=== PATIENT | female | born 1990 | race American Indian/Alaskan Native ===

== ENCOUNTER 2018-09-28 16:20 | Emergency (ER) | payer MEDICAID, OTHER ==
--- NOTE | 2018-09-28 16:29 | Emergency Department Report ---
Chief Complaint: Sore Throat Stated Complaint: SORE THROAT Time Seen by Provider: 09/28/18 16:25 - HPI History of Present Illness: SORE THROAT CONTROLLING SECRETIONS ABC INTACT PURULENT DRAINAGE L TONSIL RAPID STREP SENT RO ABSCESS MSE COMPLETED - Exam Vital Signs: Vital Signs 09/28/18 16:26 Temperature 99.9 F H Pulse Rate 109 H Respiratory 18 Rate Blood Pressure 113/80 O2 Sat by Pulse 100 Oximetry MSE screening note: Focused history and physical exam performed. Due to findings the following was ordered: ED Disposition for MSE Condition: Stable
[2018-09-28] MEDS ORDERED: DECADRON IM ONE (16:41)
[2018-09-28] MEDS ORDERED: BICILLIN L-A IM STA (17:43)
[2018-09-28] MEDS ORDERED: TYLENOL/CODEINE PO STA (17:43)
--- NOTE | 2018-09-28 18:13 | Emergency Department Report ---
ED ENT HPI - General Chief complaint: Sore Throat Stated complaint: SORE THROAT Time Seen by Provider: 09/28/18 16:25 Source: patient Mode of arrival: Ambulatory Limitations: No Limitations - History of Present Illness MD complaint: sore throat -: Gradual, days(s) (2) Location: throat Severity: mild, moderate Quality: aching, dull Consistency: constant Improves with: none Worsens with: swallowing Associated Symptoms: sore throat - Related Data Previous Rx's Medication Instructions Recorded Last Taken Type Ibuprofen [Motrin] 600 mg PO Q8H PRN #40 tablet 07/17/15 Unknown Rx Sulfamethoxazole/Trimethoprim 1 each PO BID #20 tablet 07/17/15 Unknown Rx [Bactrim DS TAB] Lidocaine Viscous 2% 5 ml MM Q3H PRN #120 udc 09/28/18 Unknown Rx Allergies Allergy/AdvReac Type Severity Reaction Status Date / Time No Known Allergies Allergy Unverified 07/17/15 15:13 ED Dental HPI - General Chief complaint: Sore Throat Stated complaint: SORE THROAT Time Seen by Provider: 09/28/18 16:25 Source: patient Mode of arrival: Ambulatory Limitations: No Limitations - Related Data Previous Rx's Medication Instructions Recorded Last Taken Type Ibuprofen [Motrin] 600 mg PO Q8H PRN #40 tablet 07/17/15 Unknown Rx Sulfamethoxazole/Trimethoprim 1 each PO BID #20 tablet 07/17/15 Unknown Rx [Bactrim DS TAB] Lidocaine Viscous 2% 5 ml MM Q3H PRN #120 udc 09/28/18 Unknown Rx Allergies Allergy/AdvReac Type Severity Reaction Status Date / Time No Known Allergies Allergy Unverified 07/17/15 15:13 ED Review of Systems ROS: Stated complaint: SORE THROAT Other details as noted in HPI Constitutional: denies: chills, fever Eyes: denies: eye pain, eye discharge, vision change ENT: throat pain. denies: ear pain Respiratory: denies: cough, shortness of breath, wheezing Cardiovascular: denies: chest pain, palpitations Endocrine: no symptoms reported Gastrointestinal: denies: abdominal pain, nausea, diarrhea Genitourinary: denies: urgency, dysuria, discharge Musculoskeletal: denies: back pain, joint swelling, arthralgia Skin: denies: rash, lesions Neurological: denies: headache, weakness, paresthesias Psychiatric: denies: anxiety, depression Hematological/Lymphatic: denies: easy bleeding, easy bruising ED Past Medical Hx - Past Medical History Previous Medical History?: No Additional medical history: right pinky fracture - Surgical History Past Surgical History?: No - Social History Smoking Status: Current Every Day Smoker Substance Use Type: None - Medications Home Medications: Home Medications Medication Instructions Recorded Confirmed Last Taken Type Ibuprofen [Motrin] 600 mg PO Q8H PRN #40 tablet 07/17/15 Unknown Rx Sulfamethoxazole/Trimethoprim 1 each PO BID #20 tablet 07/17/15 Unknown Rx [Bactrim DS TAB] Lidocaine Viscous 2% 5 ml MM Q3H PRN #120 udc 09/28/18 Unknown Rx ED Physical Exam - General Limitations: No Limitations General appearance: alert, in no apparent distress - Head Head exam: Present: atraumatic, normocephalic - Eye Eye exam: Present: normal appearance, PERRL, EOMI - ENT ENT exam: Present: mucous membranes moist, other (airway patent tongue and uvula midline and normal size. pharynx red wtih mild exudate. no drooling. normal voice) - Neck Neck exam: Present: normal inspection - Respiratory Respiratory exam: Present: normal lung sounds bilaterally. Absent: respiratory distress - Cardiovascular Cardiovascular Exam: Present: regular rate, normal rhythm. Absent: systolic murmur, diastolic murmur, rubs, gallop - GI/Abdominal GI/Abdominal exam: Present: soft, normal bowel sounds - Extremities Exam Extremities exam: Present: normal inspection - Back Exam Back exam: Present: normal inspection - Neurological Exam Neurological exam: Present: alert, oriented X3 - Psychiatric Psychiatric exam: Present: normal affect, normal mood - Skin Skin exam: Present: warm, dry, intact, normal color. Absent: rash ED Course Vital Signs 09/28/18 16:26 Temperature 99.9 F H Pulse Rate 109 H Respiratory 18 Rate Blood Pressure 113/80 O2 Sat by Pulse 100 Oximetry ED Medical Decision Making - Differential Diagnosis ANUG, strep, mono, malingnancy, quinsy Critical care attestation.: If time is entered above; I have spent that time in minutes in the direct care of this critically ill patient, excluding procedure time. ED Disposition Clinical Impression: Exudative pharyngitis Disposition: DC- TO HOME OR SELFCARE Is pt being admited?: No Does the pt Need Aspirin: No Condition: Stable Instructions: Pharyngitis (ED) Referrals: VEENA THAKKAR MD [Primary Care Provider] - 3-5 Days
[2018-09-28 21:20] VITALS: BP 113/80
== END 2018-09-28 18:56 | disposition home or self-care (01) ==
LOC: ED 16:20
DX: J02.9 Acute pharyngitis, unspecified (principal); F17.200 Nicotine dependence, unspecified, uncomplicated
CPT/HCPCS: 87430; 96372; 99283; J0561; J1100

== ENCOUNTER 2019-07-28 22:40 | Emergency (ER) | payer MEDICAID, OTHER ==
[2019-07-28 23:27] VITALS: BP 131/80
--- NOTE | 2019-07-29 01:58 | Emergency Department Report ---
- General Chief Complaint: Upper Respiratory Infection Stated Complaint: FLU SYMPTOMS W/ LT EAR PAIN Time Seen by Provider: 07/29/19 01:19 Source: patient Mode of arrival: Ambulatory Limitations: No Limitations - History of Present Illness Initial Comments: Patient is a 28-year-old female presents emergency room with complaints of left- sided ear pain that began 3 days ago. She states beginning a week ago she began to have flulike symptoms. She states that she has had dry cough, rhinorrhea, body aches, sore throat, subjective fever. She denies any chest pain, shortness of breath, nausea, vomiting, diarrhea, productive cough. She denies any past medical history. She denies any allergies to medications. - Related Data Previous Rx's Medication Instructions Recorded Last Taken Type Ibuprofen [Motrin] 600 mg PO Q8H PRN #40 tablet 07/17/15 Unknown Rx Sulfamethoxazole/Trimethoprim 1 each PO BID #20 tablet 07/17/15 Unknown Rx [Bactrim DS TAB] Lidocaine Viscous 2% 5 ml MM Q3H PRN #120 udc 09/28/18 Unknown Rx Amoxicillin [Amoxicillin TAB] 875 mg PO BID 10 Days #20 tablet 07/29/19 Unknown Rx Allergies Allergy/AdvReac Type Severity Reaction Status Date / Time No Known Allergies Allergy Unverified 07/17/15 15:13 ED Review of Systems ROS: Stated complaint: FLU SYMPTOMS W/ LT EAR PAIN Other details as noted in HPI Comment: All other systems reviewed and negative ED Past Medical Hx - Past Medical History Previous Medical History?: Yes Additional medical history: right pinky fracture - Surgical History Past Surgical History?: No - Social History Smoking Status: Current Every Day Smoker Substance Use Type: None - Medications Home Medications: Home Medications Medication Instructions Recorded Confirmed Last Taken Type Ibuprofen [Motrin] 600 mg PO Q8H PRN #40 tablet 07/17/15 Unknown Rx Sulfamethoxazole/Trimethoprim 1 each PO BID #20 tablet 07/17/15 Unknown Rx [Bactrim DS TAB] Lidocaine Viscous 2% 5 ml MM Q3H PRN #120 udc 09/28/18 Unknown Rx Amoxicillin [Amoxicillin TAB] 875 mg PO BID 10 Days #20 tablet 07/29/19 Unknown Rx ED Physical Exam - General Limitations: No Limitations General appearance: alert, in no apparent distress - Head Head exam: Present: atraumatic, normocephalic - Eye Eye exam: Present: normal appearance - ENT ENT exam: Present: normal orophraynx, mucous membranes moist, other (right TM and canal are normal, left TM is erythematous, left canal is normal ) - Respiratory Respiratory exam: Present: normal lung sounds bilaterally. Absent: respiratory distress, wheezes, rales, rhonchi, stridor, chest wall tenderness, accessory muscle use, decreased breath sounds, prolonged expiratory - Cardiovascular Cardiovascular Exam: Present: regular rate, normal rhythm, normal heart sounds. Absent: systolic murmur, diastolic murmur, rubs, gallop - Neurological Exam Neurological exam: Present: alert, oriented X3 - Psychiatric Psychiatric exam: Present: normal affect, normal mood - Skin Skin exam: Present: warm, dry, intact ED Course Vital Signs 07/28/19 07/29/19 23:26 02:10 Temperature 99.8 F H 98.7 F Pulse Rate 84 72 Respiratory 20 16 Rate Blood Pressure 131/80 O2 Sat by Pulse 100 100 Oximetry ED Medical Decision Making - Medical Decision Making Patient is a 28-year-old female presents emergency room with complaints of left- sided ear pain that began 3 days ago. She states beginning a week ago she began to have flulike symptoms. She states that she has had dry cough, rhinorrhea, body aches, sore throat, subjective fever. She denies any chest pain, shortness of breath, nausea, vomiting, diarrhea, productive cough. She denies any past medical history. She denies any allergies to medications. Initial vitals with mild low-grade temperature which improved upon ibuprofen administration. on exam right TM and canal are normal, left TM is erythematous, left canal is normal. Examination consistent with otitis media and URI. given prescription for amoxicillin. advised to please take medication as prescribed to completion. May take Mucinex or TheraFlu [id number] for cough cold symptoms. May alternate Tylenol and ibuprofen as needed for ear pain. Follow-up with a primary care doctor in the next 3 to 5 days for ear reexamination. Return to the emergency room for any new or worsening symptoms. - Differential Diagnosis influenza, strep, uri, pna, viral syndrome, otitis Critical care attestation.: If time is entered above; I have spent that time in minutes in the direct care of this critically ill patient, excluding procedure time. ED Disposition Clinical Impression: Otitis media Qualifiers: Otitis media type: suppurative Chronicity: acute Laterality: left Recurrence: non-recurrent Spontaneous tympanic membrane rupture: without spontaneous rupture Qualified Code(s): H66.002 - Acute suppurative otitis media without spontaneous rupture of ear drum, left ear URI (upper respiratory infection) Qualifiers: URI type: unspecified URI Qualified Code(s): J06.9 - Acute upper respiratory infection, unspecified Disposition: TO HOME OR SELFCARE Is pt being admited?: No Does the pt Need Aspirin: No Condition: Stable Instructions: Otitis Media (ED), Upper Respiratory Infection (ED) Additional Instructions: Please take medication as prescribed to completion. May take Mucinex or TheraFlu [id number] for cough cold symptoms. May alternate Tylenol and ibuprofen as needed for ear pain. Follow-up with a primary care doctor in the next 3 to 5 days for ear reexamination. Return to the emergency room for any new or worsening symptoms. Prescriptions: Amoxicillin [Amoxicillin TAB] 875 mg PO BID 10 Days #20 tablet Referrals: TALHA BROWNLEE MD [Staff Physician] - 3-5 Days [facility] [Outside] - 3-5 Days [facility] [Outside] - 3-5 Days Time of Disposition: 01:57 Print Language: MAORI
[2019-07-29] MEDS: IBUPROFEN 600 MG TAB PO ONE (01:59)
== END 2019-07-29 02:10 | disposition home or self-care (01) ==
LOC: ED 22:40
DX: H66.92 Otitis media, unspecified, left ear (principal); J06.9 Acute upper respiratory infection, unspecified; F17.200 Nicotine dependence, unspecified, uncomplicated; Z79.1 Long term (current) use of non-steroidal anti-inflammatories (NSAID); Z79.2 Long term (current) use of antibiotics; Z79.899 Other long term (current) drug therapy
CPT/HCPCS: 99282